=== PATIENT | female | born 1985 | race Caucasian/White ===

== ENCOUNTER → 2016-09-03 | Outpatient (CLI) | payer BC ==
[2016-09-03 12:06] LABS: CH 31.4; CHCM 34.6; HCT 37.4 % (34.0-46.0); HDW 2.66; HGB 12.6 gm/dL (11.4-16.0); MCH 30.8 pg (25.0-35.0); MCHC 33.7 g/dL (31.0-37.0); MCV 91.4 fL (80.0-100.0); Mean Platelet Volume 8.2; RBC 4.09 m/uL (3.80-5.40); RDW 12.6 % (11.5-15.5); WBC 5.7 k/uL (3.8-10.6)
[2016-09-03 12:27] LABS: Glucose 102 mg/dL (74-99); Non-African American GFR(MDRD) >60 (>60 ml/min/1.73 sqM)
[2016-09-03 12:57] LABS: Hepatitis B Surface Ag Index 0.07
== END | disposition home or self-care (01) ==
LOC: LABWHC1 11:42
PROVIDERS: ATTEND Obstetrics & Gynecology
DX: Z34.81 Encounter for supervision of other normal pregnancy, first trimester (principal); Z3A.00 Weeks of gestation of pregnancy not specified
CPT/HCPCS: 36415; 82565; 82947; 85027; 86762; 86780; 86850; 86900; 86901; 87340

== ENCOUNTER → 2016-10-18 | Outpatient (CLI) | payer BC ==
--- NOTE | 2016-10-18 13:15 | US ---
EXAMINATION TYPE: US OB anatomy transabd second trimester. DATE OF EXAM: 10/18/2016 11:50 AM COMPARISON: NONE HISTORY: LGA; patient stated had one day vaginal bleeding last week TECHNIQUE: Transabdominal (TA) EXAM MEASUREMENTS: GESTATIONAL AGE / DATING Physician Established: (19 weeks/0 days) EDC: 03/14/2017 Dates by LMP: unknown Dates by First Scan: today Dates by Current Scan for: (18 weeks/3 days) EDC: 03/18/2017 SURVEY IUP: Single; focal myometrial contraction is noted in anterior uterine wall at start of exam. PLACENTA: fundal posterior PREVIA: No previa AZALIA: 12.0 cm Normal CERVICAL LENGTH (transabdominal: norm > 3.0cm): 3.6 cm BIOMETRY PRESENTATION: Breech LIE: Longitudinal BPD: 4.1 cm 18 weeks / 4 days HC: 14.8 cm 18 weeks / 0 days AC: 13.4 cm 19 weeks / 0 days FL: 2.6 cm 18 weeks / 0 days ESTIMATED WEIGHT IN GRAMS: 237.0 grams ESTIMATED WEIGHT IN LBS/OZ: 0 lbs. 8 oz. WEIGHT PERCENTAGE BASED ON ESTABLISHED DATE: 15 % HC/AC: 1.10 normal FL/AC: 19.0 normal HEART RATE: 147 bpm RHYTHM: Normal ANATOMY SEEN (within normal limits): * Lateral Vent (< 1 cm) 0.7 cm * Cisterna Magna (< 1.1 cm) 03 cm * Nuchal Fold (< 0.6 cm) 0.3 cm * Cerebellum (varies with age) 1.74 cm Choroid Plexus (bilateral) Midline Falx Cavus Septi Pellucidi Four Chamber Heart Outflow tracts: LVOT/RVOT Stomach Situs Diaphragm Kidneys (bilateral) Bladder Cord Insert Three Vessel Cord Longitudinal Spine Transverse Spine Arms (bilateral) Legs (bilateral) ANATOMY NOT SEEN: Nose / Lips: early jaw was seen, however, nose/lips best seen >20 weeks gestation Single live intrauterine gestation is present. Normal cephalad presentation to fetus is seen on initi al images. There is no ultrasound evidence for placenta previa. Amniotic fluid index is within normal limits. biometry measurements are concordant felt within normal limits. Detailed anatomical manuel rvey shows no suspicious abnormality during real-time scanning. Still images saved poor visualization of kidneys and nose/lips in coronal projection. IMPRESSION:Single, live, IUP, 18 weeks/3 days, EDC: 03/18/2017; HR147 BPM. As above
== END | disposition home or self-care (01) ==
LOC: RADUSWWP 10:26
PROVIDERS: ATTEND Obstetrics & Gynecology
DX: O36.62X0 Maternal care for excessive fetal growth, second trimester, not applicable or unspecified (principal); Z3A.18 18 weeks gestation of pregnancy
CPT/HCPCS: 76811

== ENCOUNTER → 2016-12-13 | Outpatient (CLI) | payer BC ==
[2016-12-13 14:14] LABS: CH 30.5; CHCM 34.2; HCT 31.7 % (34.0-46.0); HDW 3.24; HGB 10.9 gm/dL (11.4-16.0); MCHC 34.5 g/dL (31.0-37.0); MCV 89.7 fL (80.0-100.0); RBC 3.53 m/uL (3.80-5.40); WBC 10.6 k/uL (3.8-10.6)
== END | disposition home or self-care (01) ==
LOC: LABWHC1 12:45
PROVIDERS: ATTEND Obstetrics & Gynecology
DX: Z34.82 Encounter for supervision of other normal pregnancy, second trimester (principal); Z3A.00 Weeks of gestation of pregnancy not specified
CPT/HCPCS: 36415; 82950; 85027

== ENCOUNTER 2017-02-26 12:36 | Inpatient (IN) | payer BC ==
[2017-02-26] MEDS ORDERED: TERBUTALINE 1 MG/ML VIAL SQ PRN (13:07)
[2017-02-26] MEDS ORDERED: LIDOCAINE 1% (PF) 10 MG/ML (30 ML SDV) SQ PRN (13:07)
[2017-02-26] MEDS ORDERED: CARBOPROST TROMETHAMINE 250 MCG/ML 1 ML AMP IM PRN (13:07)
[2017-02-26] MEDS ORDERED: METHYLERGONOVINE 0.2 MG/ML 1 ML AMP IM PRN (13:07)
[2017-02-26] MEDS ORDERED: OXYTOCIN 10 UNIT/ML 1 ML VIAL IM PRN (13:07)
--- NOTE | 2017-02-26 13:08 | P.HPOB ---
History of Present Illness H&P Date: 02/26/17 Chief Complaint: Hypertension and This patient is a pleasant 31-year-old 3 para 2 female estimated date of confinement 03/14/2017 estimated gestational age 37-5/7 weeks who presented to my office for routine visit was found to have a mild blood pressure elevation of 130/80 but also complained of a headache. Patient has a history of preeclampsia with her first delivery required induction at 37 weeks. Second she did not have this. Patient's blood pressures here are elevated at 140s to 150s systolic. She now presents for induction due to gestational hypertension at term. care has otherwise been uncomplicated. Review of Systems Constitutional: Reports as per HPI Ears, nose, mouth and throat: Reports headache Cardiovascular: Denies chest pain, Denies shortness of breath Respiratory: Denies cough Gastrointestinal: Reports heartburn Genitourinary: Reports Menstruation: Reports amenorrhea Past Medical History Past Medical History: No Reported History Additional Past Medical History / Comment(s): Past obstetrical history: Normal vaginal delivery 2 with preeclampsia at 37 weeks with her first . History of Any Multi-Drug Resistant Organisms: None Reported Past Surgical History: No Surgical Hx Reported Past Anesthesia/Blood Transfusion Reactions: No Reported Reaction Past Psychological History: No Psychological Hx Reported Smoking Status: Never smoker Past Alcohol Use History: None Reported Past Drug Use History: None Reported - Past Family History Mother Family Medical History: Hypertension Medications and Allergies Home Medications Medication Instructions Recorded Confirmed Type Cvn-Ihwo-Hvbdr Acid 1 tab PO DAILY 01/14/14 01/14/14 History [-U Capsule (formulary)] Allergies Allergy/AdvReac Type Severity Reaction Status Date / Time No Known Allergies Allergy Verified 02/26/17 12:48 Exam - Vital Signs Vital signs: Intake and Output 02/25/17 02/26/17 02/26/17 22:59 06:59 14:59 Other: Weight 80.286 kg Patient Weight 02/27/17 06:59 Weight 80.286 kg - OBG Physical Exam Abdomen: bowel sounds normal (Fundal height is consistent with gestational age.) , no diffuse tenderness, no bruit present, no guarding noted, no hepatomegaly, no splenomegaly, no mass Vulva: both: normal Cervix: no lesion (Cervix is 2 cm and thick.), no discharge Uterus: enlarged Results blood work shows she is A positive, rubella immune, RPR nonreactive, hepatitis B negative, Glucola was normal, group B strep was negative, ultrasounds have been normal. Assessment and Plan (1) Gestational hypertension affecting third Narrative/Plan: This is a pleasant 31-year-old 3 para 2 female 37-5/7 weeks' gestation with gestational hypertension at term. Per recommendations plan is to proceed with delivery at this time. Patient and I and her have discussed this and she agrees with plan for delivery. We'll proceed with Pitocin induction and artificial rupture membranes and anticipate vaginal delivery. Status: Acute
[2017-02-26] MEDS ORDERED: OXYTOCIN 20 UNITS/1000 ML NS 1,000 ML IV SCH (13:15)
[2017-02-26 13:18] VITALS: BMI 27.7
[2017-02-26] MEDS: LACTATED RINGERS 1,000 ML IV SCH ×3 (13:38→22:28)
[2017-02-26 13:39] LABS: ALT 30 U/L (9-52); AST 18 U/L (14-36); Blood Urea Nitrogen 6 mg/dL (7-17); Non-African American GFR(MDRD) >60 (>60 ml/min/1.73 sqM); Uric Acid 5.2 mg/dL (3.7-7.4)
[2017-02-26 13:45] LABS: Basophils % (A) 0 %; CHCM 32.4; Eosinophils # (A) 0.1 k/uL (0-0.7); Eosinophils % (A) 1 %; Hypochromasia Slight; Large Platelets Flag Moderate; Luc # (Auto) 0.24; Luc % (Auto) 3; Lymphocytes # (A) 2.1 k/uL (1.0-4.8); Lymphocytes % (A) 24 %; MCH 27.8 pg (25.0-35.0); MCHC 33.3 g/dL (31.0-37.0); MCV 83.5 fL (80.0-100.0); Monocytes # (A) 0.6 k/uL (0-1.0); Monocytes % (A) 7 %; Neutrophils # (A) 5.7 k/uL (1.3-7.7); Neutrophils % (A) 65 %; Poikilocytosis Slight; RBC 3.59 m/uL (3.80-5.40); RDW 13.7 % (11.5-15.5); WBC 8.7 k/uL (3.8-10.6); WBC (Perox) 8.95
[2017-02-26 14:37] LABS: Large Platelets Present
[2017-02-26] MEDS: CALCIUM CARBONATE 500 MG CHEWABLE PO PRN ×2 (15:01→19:37)
[2017-02-27] MEDS ORDERED: AMPICILLIN 2,000 MG in SODIUM CHLORIDE 0.9% 100 ML IVPB ONE (01:00)
[2017-02-27] MEDS ORDERED: fentaNYL (PF) 50 MCG/ML 5 ML AMP ONE (01:36)
[2017-02-27] MEDS ORDERED: SODIUM CHLORIDE 0.9% 100 ML BAG ONE (01:36)
[2017-02-27] MEDS ORDERED: BUPIVACAINE (PF) 0.25% 30 ML VIAL ONE (01:36)
[2017-02-27] MEDS ORDERED: AMPICILLIN 1,000 MG in SODIUM CHLORIDE 0.9% 50 ML IVPB SCH (03:24)
[2017-02-27] MEDS: LACTATED RINGERS 1,000 ML IV SCH (05:14)
[2017-02-27] MEDS ORDERED: LANOLIN CREAM 5 GM TUBE TOPICAL PRN (06:05)
[2017-02-27] MEDS ORDERED: ACETAMINOPHEN TAB 325 MG TAB PO PRN (06:05)
[2017-02-27] MEDS ORDERED: diphenhydrAMINE 25 MG CAP PO PRN (06:05)
[2017-02-27] MEDS ORDERED: WITCH HAZEL 1 EACH MED..PAD TOPICAL PRN (06:05)
[2017-02-27] MEDS ORDERED: HYDROCORTISONE 2.5% RECTAL CREAM 30 GM TUBE RECTAL PRN (06:05)
[2017-02-27] MEDS ORDERED: ZOLPIDEM 5 MG TAB PO PRN (06:05)
[2017-02-27] MEDS ORDERED: diphenhydrAMINE 50 MG/ML 1 ML VIAL IVP PRN (06:05)
[2017-02-27] MEDS ORDERED: Acetaminophen-Codeine 300-30mg TAB PO PRN ×2 (06:05)
[2017-02-27] MEDS ORDERED: SIMETHICONE 80 MG CHEWABLE PO PRN (06:05)
[2017-02-27] MEDS ORDERED: BISACODYL 10 MG SUPP RECTAL PRN (06:05)
[2017-02-27] MEDS ORDERED: BENZOCAINE/MENTHOL SPRAY 1 GM/SPRAY AEROSOL TOPICAL PRN (06:05)
--- NOTE | 2017-02-27 06:11 | P.PROBDLV ---
Vaginal Delivery Note - . Vaginal Delivery Note: Normal vaginal delivery viable female Apgars 8 and 9 delivery time is 0548 hours. Please see dictated H&P for intimate details of this patient's admission. Brief summary this is a pleasant 31-year-old 3 para 2 female 37-5/7 weeks gestation who was admitted yesterday for hypertension. Patient is noted to have 2 separate blood pressures with criteria for delivery. This time she is 2 cm dilated has artificial rupture membranes for clear fluid and Pitocin augmentation of labor. Patient does progress slowly but then does get an epidural for pain control. Patient thereafter goes to complete pushes the head to the perineum. Posterior perineum was infiltrated 1% lidocaine and a midline episiotomy is made. We have controlled delivery of the infant's head over the perineum. Mouth and nares are bulb suctioned. There is no evidence of a nuchal cord. We then have with gentle downward traction deliver the anterior and posterior shoulder and rest this 's body. This is a vigorous viable female Apgars are 8 and 9 delivery time is 0548 hours. After delivery of the the umbilical cord is doubly clamped and cut. This infant has spontaneous respiration and good cry and grossly appears normal. After delivery of the infant the placenta spontaneously delivered intact. A sample loss is 150 mL. Inspection of perineum shows a second-degree midline laceration which is repaired with 3-0 Vicryl in the usual fashion in good reapproximation is noted. All counts are correct 3. There are no complications. and mother are stable delivery room.
[2017-02-27] MEDS ORDERED: OXYTOCIN 20 UNITS/1000 ML NS 1,000 ML IV SCH (06:15)
[2017-02-27] MEDS: IBUPROFEN 600 MG TAB PO PRN ×2 (14:17→22:37)
[2017-02-27] MEDS: SENNOSIDES-DOCUSATE SODIUM 1 EACH TAB PO SCH ×2 (14:22→20:01)
--- NOTE | 2017-02-28 06:27 | P.PNOBGVD ---
Subjective - Subjective Patient reports: Reports appetite normal, Reports voiding normally, Reports pain well controlled, Reports ambulating normally : doing well Objective - Latest Vital Signs Latest vital signs: Vital Signs Temp Pulse Resp BP Pulse Ox 02/28/17 04:00 97.8 F 79 18 121/63 02/27/17 23:37 97.9 F 84 15 122/63 02/27/17 20:00 98.0 F 82 14 126/76 02/27/17 16:00 98.1 F 77 20 141/75 99 02/27/17 12:00 98.3 F 78 20 128/76 98 02/27/17 07:50 98.5 F 87 20 130/76 02/27/17 07:20 70 20 131/79 02/27/17 06:50 80 18 127/71 02/27/17 06:35 94 18 128/62 Intake and Output 02/27/17 02/27/17 02/28/17 14:59 22:59 06:59 Other: # Voids 1 - Exam Lungs: bilateral: normal Chest: Normal S1, Normal S2 Extremities: Present: normal Abdomen: Present: normal appearance, soft Uterus: Present: normal, firm Assessment and Plan (1) Gestational hypertension affecting third Narrative/Plan: day #1. Patient is resting without complaints. Vital signs are stable and she is afebrile. Uterus is firm nontender she's having normal lochia. Patient wishes to go home today. Plan is to continue routine care discharge home later today. Current Visit: Yes Status: Acute Code(s): O13.9 - GESTATIONAL HTN W/O SIGNIFICANT PROTEINURIA, UNSP TRIMESTER; O09.40 - SUPERVISION OF W GRAND MULTIPARITY, UNSP TRIMESTER SNOMED Code(s): 43705369
--- NOTE | 2017-02-28 06:30 | P.DS ---
Providers Date of admission: 02/26/17 12:53 Expected date of discharge: 02/28/17 Attending physician: Adonis Kessler Primary care physician: Adonis Kessler - Discharge Diagnosis(es) (1) Gestational hypertension affecting third Current Visit: Yes Status: Acute Hospital Course: Please see dictated H&P for intimate details of this patient's admission. Brief summary this pleasant 31-year-old 3 para 2 female 37-5/7 weeks gestation admitted to labor and delivery for delivery secondary to hypertension. Patient is admitted has uncomplicated induction of labor goes on to have a vaginal delivery viable female . Please see dictated delivery note. day #1 this patient is without complaints and wishes to go home. Patient's felt to be stable for discharge home follow up with me in 6 weeks. Procedures: Induction of labor and normal vaginal delivery. Patient Condition at Discharge: Good Plan - Discharge Summary New Discharge Prescriptions: New Acetaminophen-Codeine 300-30mg [Tylenol w/codeine #3] 1 - 2 each PO Q4HR PRN #30 tab PRN Reason: Mild Pain exceeding Tylenol Ibuprofen [Motrin] 600 mg PO Q6HR PRN #40 tab PRN Reason: Mild Pain Or Fever >= 100.5 No Action [id number] Acid [-U Capsule (formulary)] 1 tab PO DAILY Discharge Medication List [id number] Acid [-U Capsule (formulary)] 1 tab PO DAILY [History] Acetaminophen-Codeine 300-30mg [Tylenol w/codeine #3] 1 - 2 each PO Q4HR PRN # 30 tab 02/28/17 [Rx] Ibuprofen [Motrin] 600 mg PO Q6HR PRN #40 tab 02/28/17 [Rx] Follow up Appointment(s)/Referral(s): Adonis Kessler MD [Primary Care Provider] - 6 Weeks Patient Instructions/Handouts: Vaginal Delivery (DC) Activity/Diet/Wound Care/Special Instructions: Her course or anything per vagina for 6 weeks. Please call if any fever, chills , excessive vaginal bleeding, lower abdominal pain. Discharge Disposition: HOME SELF-CARE
[2017-02-28] MEDS: SENNOSIDES-DOCUSATE SODIUM 1 EACH TAB PO SCH (08:53)
[2017-02-28] MEDS: IBUPROFEN 600 MG TAB PO PRN (08:54)
[2017-02-28 09:18] VITALS: RESP 20; TEMP 98.2
[2017-02-28 10:34] VITALS: BP 126/73; PULSE 72
== END 2017-02-28 13:30 | disposition home or self-care (01) | DRG 775 ==
LOC: FBPOP 12:36 → 4FBP 12:53
PROVIDERS: ADMIT Obstetrics & Gynecology; ATTEND Obstetrics & Gynecology
PROC: 10E0XZZ Delivery of Products of Conception, External Approach (ICD-10-PCS; principal; 2017-02-27)
PROC: 0KQM0ZZ Repair Perineum Muscle, Open Approach (ICD-10-PCS; 2017-02-27)
PROC: 00HU33Z Insertion of Infusion Device into Spinal Canal, Percutaneous Approach (ICD-10-PCS; 2017-02-27)
PROC: 3E0R3CZ (ICD-10-PCS; 2017-02-27)
DX: O13.4 Gestational [pregnancy-induced] hypertension without significant proteinuria, complicating childbirth (principal); O70.1 Second degree perineal laceration during delivery; Z37.0 Single live birth; Z3A.37 37 weeks gestation of pregnancy; Z82.49 Family history of ischemic heart disease and other diseases of the circulatory system
CPT/HCPCS: 82565; 84450; 84460; 84520; 84550; 85025; 88307

== ENCOUNTER → 2024-08-12 | Outpatient (CLI) | payer BC ==
--- NOTE | 2024-08-12 08:33 | US ---
EXAMINATION TYPE: US abdomen limited DATE OF EXAM: 08/12/2024 COMPARISON: NONE CLINICAL INDICATION: Female, 38 years old with history of R94.5 ABNORMAL RESULTS OF LIVER FUNCTION ST UDIES; abnormal LFTs TECHNIQUE: Grayscale and color Doppler imaging of the right upper quadrant was performed. FINDINGS: EXAM MEASUREMENTS: Liver Length: 14.8 cm Gallbladder Wall: 0.23 cm CBD: 0.32 cm Right Kidney: 10.5 x 5.3 x 4.7 cm PHOTOLITHOGRAPHIC STRIPPER NOTES: Pancreas: parts seen appear wnl Liver: heterogeneous Gallbladder: wnl Evidence for sonographic Ledesma's sign: No CBD: wnl Right Kidney: wnl IMPRESSION: 1. No evidence for acute process. 2. Hepatic steatosis [facility], , 08/12/2024 8:31 AM
== END | disposition home or self-care (01) ==
LOC: RADUSWWP 08:01
PROVIDERS: ATTEND Family Medicine
DX: R94.5 Abnormal results of liver function studies (principal); K76.0 Fatty (change of) liver, not elsewhere classified
CPT/HCPCS: 76705